=== PATIENT | female | born 1975 | race Caucasian/White ===

== ENCOUNTER → 2016-10-14 | Outpatient (CLI) | payer MEDICAID ==
--- NOTE | 2016-10-17 16:48 | RADIOLOGY REPORT PS360 ---
DIG MAMM-SCREEN SONIA W/CAD CAD Screening COMPARISON: Digital mammograms 10/12/2015 and 09/22/2014 INDICATION: There is a history of breast cancer in patient's mother diagnosed before menopause. There is been previous cyst aspiration left breast. TECHNIQUE: Standard CC and MLO images were obtained. R2 CAD reviewed. FINDINGS: Moderate diffuse fibroglandular densities are seen throughout both breasts and the findings are bilateral and symmetrical. There is no new or suspicious lesion in either breast and there are no suspicious microcalcifications. IMPRESSION: Stable exam no suspicious lesion seen recommend yearly follow-up BI-RADS CATEGORY: 1_Negative RECOMMENDED FOLLOWUP: 12M 12 MONTH FOLLOW-UP (A letter has been sent to the patient regarding results of the study.)
== END ==
LOC: RAD 10-03 16:30
DX: Z12.31 Encounter for screening mammogram for malignant neoplasm of breast (principal)
CPT/HCPCS: G0202